=== PATIENT | male | born 1995 | race African-American/Black ===

== ENCOUNTER 2017-02-16 18:00 | Emergency (ER) | payer OTHER ==
[~2017-02-16] VITALS: Ht 175.3 cm; Wt 72.6 kg
[2017-02-16] MEDS ORDERED: HYDROcodone/APAP 7.5/325MG 1 TAB TABLET PO ONE (19:00)
[2017-02-16] MEDS ORDERED: ONDANSETRON ODT 4 MG TAB.RAPDIS PO ONE (19:00)
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
[2017-02-16 20:28] VITALS: BP 128/75
[2017-02-16] MEDS ORDERED: LIDOCAINE 2%/EPI 1:100,000 20 ML VIAL. IJ ONE (20:30)
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
[2017-02-16] MEDS ORDERED: CLIN300C8 PO (21:32)
[2017-02-16] MEDS ORDERED: CHLO15MO2 PO (21:32)
[2017-02-16] MEDS ORDERED: CLINDAMYCIN HCL 150 MG CAPSULE PO ONE (22:00)
== END 2017-02-16 21:40 | disposition home or self-care (01) ==
LOC: ER 18:00
DX: S06.0X0A Concussion without loss of consciousness, initial encounter (principal); S01.511A Laceration without foreign body of lip, initial encounter; M54.2 Cervicalgia; W18.09XA Striking against other object with subsequent fall, initial encounter; Y93.67 Activity, basketball; Y99.8 Other external cause status; Y92.214 College as the place of occurrence of the external cause
CPT/HCPCS: 12011; 70450; 70486; 72125; 99284; Q0162